=== PATIENT | female | born 1950 | race Caucasian/White ===

== ENCOUNTER 2023-10-14 14:20 | Emergency (ER) | payer MEDICARE, BC ==
[~2023-10-14] VITALS: Ht 160 cm; Wt 100.4 kg
[2023-10-14 16:14] VITALS: BP 161/117; PULSE 54; RESP 17; TEMP 98.5; O2SAT 96
== END 2023-10-14 16:17 | disposition home or self-care (01) ==
LOC: ER 14:20
DX: S51.011A Laceration without foreign body of right elbow, initial encounter (principal); S01.81XA Laceration without foreign body of other part of head, initial encounter; S00.33XA Contusion of nose, initial encounter; Z88.8 Allergy status to other drugs, medicaments and biological substances; W22.8XXA Striking against or struck by other objects, initial encounter; Y93.89 Activity, other specified; Y92.89 Other specified places as the place of occurrence of the external cause; Y99.8 Other external cause status
CPT/HCPCS: 70450; 99284